=== PATIENT | male | born 2000 | race Two or more races ===

== ENCOUNTER 2020-04-15 01:48 | Inpatient (IN) | payer MEDICAID ==
[~2020-04-15] VITALS: Ht 175.3 cm; Wt 76.3 kg
[2020-04-15 02:39] LABS: BASOPHILS % (AUTO) 1.1 % (0.0-2.0); EOSINOPHILS % (AUTO) 0.3 % (1.0-6.0); HEMATOCRIT 46.1 % (41-53); HEMOGLOBIN 15.8 g/dL (13.5-17.5); LYMPHOCYTES # (AUTO) 1.7 K/uL (1.0-4.8); LYMPHOCYTES % (AUTO) 23.4 % (22.0-44.0); MEAN CORPUSCULAR HEMOGLOBIN 30.3 pg (26.0-34.0); MEAN CORPUSCULAR HGB CONC 34.3 G/dL (31.0-37.0); MEAN CORPUSCULAR VOLUME 88 fL (80-100); MONOCYTES # (AUTO) 0.4 K/uL (0.1-1.0); MONOCYTES % (AUTO) 5.9 % (2.0-9.0); NEUTROPHILS % (AUTO) 69.3 % (40.0-70.0); PLATELET COUNT (AUTO) 185 K/uL (150-450); RED BLOOD CELL COUNT(AUTO) 5.23 MIL/uL (4.50-5.90); RED CELL DISTRIBUTION WIDTH 12.9 % (11.5-14.5)
[2020-04-15 02:50] LABS: ANION GAP 8 mmol/L (8-16); CALCIUM, TOTAL 9.7 mg/dL (8.8-10.5); CARBON DIOXIDE 28 mmol/L (22-29); CHLORIDE 104 mmol/L (98-107); CREATININE 1.16 mg/dL (0.60-1.30); GLOMERULAR FILTR. RATE CALC > 60 mL/min (>60); GLUCOSE,RANDOM 105 mg/dL (70-110); POTASSIUM 4.4 mmol/L (3.5-5.1); SODIUM SERUM 140 mmol/L (136-145); UREA NITROGEN, BLOOD 10 mg/dL (7-18)
[2020-04-15 02:55] LABS: ALANINE AMINOTRANSFERASE 22 U/L (12-78); ALBUMIN 4.6 g/dL (3.4-5.0); ALKALINE PHOSPHATASE 58 U/L (46-116); ASPARTATE AMINOTRANSFERASE 16 U/L (15-37); BILIRUBIN,TOTAL 0.6 mg/dL (0.1-1.0)
[2020-04-15 04:34] LABS: COVID AG,FIA SOURCE NASOPHARYNGEAL
[2020-04-15 04:47] LABS: AMPHET/METH SCREEN,URINE NEGATIVE (NEGATIVE); BARBITURATE SCREEN, URINE NEGATIVE (NEGATIVE); BENZODIAZEPINES SCREEN,URINE NEGATIVE (NEGATIVE); CANNABINOID SCREEN,URINE POSITIVE (NEGATIVE); COCAINE SCREEN,URINE NEGATIVE (NEGATIVE); METHADONE SCREEN, URINE NEGATIVE (NEGATIVE); OPIATE SCREEN,URINE NEGATIVE (NEGATIVE)
[2020-04-15 04:49] LABS: PHENCYCLIDINE SCREEN,URINE NEGATIVE (NEGATIVE)
[2020-04-15] MEDS ORDERED: QUEtiapine FUMARATE 100 MG TABLET PO PRN (05:00)
[2020-04-15] MEDS ORDERED: ZOLPIDEM TARTRATE 10 MG TABLET PO PRN (05:00)
[2020-04-15] MEDS: LORazepam 2 MG TABLET PO PRN (05:20)
[2020-04-15 09:00] VITALS: BP 156/79
[2020-04-15] MEDS ORDERED: INFLUENZA VIRUS VACCINE QVS 2020-21 (6MO+)/PF 60 MCG/0.5 ML SYRINGE IM ONE (09:45)
[2020-04-15 16:00] VITALS: BP 139/94
[2020-04-15] MEDS ORDERED: LOPERAMIDE HCL 2 MG CAPSULE PO PRN (20:15)
[2020-04-15] MEDS ORDERED: OLANZapine 5 MG RAPDIS TABLET PO PRN (20:15)
[2020-04-15] MEDS ORDERED: HydrOXYzine PAMOATE 50 MG CAPSULE PO PRN (20:15)
[2020-04-15] MEDS ORDERED: GuaiFENesin/D-METHORPHAN [SUGAR-FREE] 200-20MG/10 ML SYRUP UDCUP PO PRN (20:15)
[2020-04-15] MEDS ORDERED: PROMETHAZINE HCL 25 MG TABLET PO PRN (20:15)
[2020-04-15] MEDS ORDERED: TUBERCULIN, PURIFIED PROTEIN DERIVATIVE 5 TU/0.1 ML SYRINGE ID ONE (20:15)
[2020-04-15] MEDS ORDERED: MAGNESIUM HYDROXIDE SUSPENSION 30 ML UDCUP PO PRN (20:15)
[2020-04-15] MEDS ORDERED: ACETAMINOPHEN 325 MG TABLET PO PRN (20:15)
[2020-04-15] MEDS ORDERED: MAG HYDROX/AL HYDROX/SIMETH ES 30 ML SUSPENSION UDCUP PO PRN (20:15)
[2020-04-15] MEDS ORDERED: OLANZapine 5 MG RAPDIS TABLET PO SCH (21:00)
[2020-04-16 07:28] LABS: HEMOGLOBIN A1C 5.1 % (3.8-5.6)
[2020-04-16 07:38] LABS: CHOL/HDL RATIO 4.3 (4.2-7.3); FREE T4 (FREE THYROXINE) 1.58 ng/dL (0.76-1.46); THYROID STIMULATING HORMONE 2.09 uIU/mL (0.36-3.74)
[2020-04-16] MEDS: MULTIVITAMINS WITH MINERALS, THERAPEUTIC TABLET PO SCH (08:55)
[2020-04-16] MEDS: FLUoxetine HCL 20 MG CAPSULE PO SCH (08:55)
[2020-04-16] MEDS: NALTREXONE HCL 50 MG TABLET PO SCH (08:55)
[2020-04-16] MEDS: THIAMINE 100 MG TABLET PO SCH ×2 (08:55→16:28)
[2020-04-16] MEDS: OMEGA-3/DHA/EPA/FISH OIL 1,000 MG CAPSULE PO SCH (08:55)
[2020-04-16] MEDS: FOLIC ACID 1 MG TABLET PO SCH (08:55)
[2020-04-16 09:28] VITALS: BP 146/76
[2020-04-16 16:12] VITALS: BP 140/89
[2020-04-16] MEDS: OLANZapine 10 MG RAPDIS TABLET PO SCH (20:44)
[2020-04-17 00:05] VITALS: BP 146/85
[2020-04-17] MEDS: NALTREXONE HCL 50 MG TABLET PO SCH (08:37)
[2020-04-17] MEDS: FOLIC ACID 1 MG TABLET PO SCH (08:37)
[2020-04-17] MEDS: OMEGA-3/DHA/EPA/FISH OIL 1,000 MG CAPSULE PO SCH (08:37)
[2020-04-17] MEDS: MULTIVITAMINS WITH MINERALS, THERAPEUTIC TABLET PO SCH (08:37)
[2020-04-17] MEDS: FLUoxetine HCL 20 MG CAPSULE PO SCH (08:37)
[2020-04-17] MEDS: THIAMINE 100 MG TABLET PO SCH ×2 (08:38→16:30)
[2020-04-17 09:34] VITALS: BP 163/93
[2020-04-17 16:23] VITALS: BP 138/96
[2020-04-17] MEDS ORDERED: NALT50TA PO (18:53)
[2020-04-17] MEDS ORDERED: OLAN10TA22 PO (18:53)
[2020-04-17] MEDS ORDERED: OMEG-135 PO (18:53)
[2020-04-17] MEDS ORDERED: FLUO-191 PO (18:53)
[2020-04-17] MEDS: OLANZapine 10 MG RAPDIS TABLET PO SCH (20:34)
[2020-04-17] MEDS: LORazepam 2 MG TABLET PO PRN (22:07)
[2020-04-18 08:30] VITALS: BP 153/81
[2020-04-18] MEDS: FOLIC ACID 1 MG TABLET PO SCH (09:39)
[2020-04-18] MEDS: NALTREXONE HCL 50 MG TABLET PO SCH (09:39)
[2020-04-18] MEDS: FLUoxetine HCL 20 MG CAPSULE PO SCH (09:39)
[2020-04-18] MEDS: OMEGA-3/DHA/EPA/FISH OIL 1,000 MG CAPSULE PO SCH (09:39)
[2020-04-18] MEDS: MULTIVITAMINS WITH MINERALS, THERAPEUTIC TABLET PO SCH (09:39)
[2020-04-18] MEDS: THIAMINE 100 MG TABLET PO SCH (09:40)
== END 2020-04-18 11:05 | disposition home or self-care (01) | DRG 750 ==
LOC: EMS 01:48 → 3EI 04:46
PROVIDERS: ADMIT Psychiatry & Neurology Psychiatry; ATTEND Psychiatry & Neurology Psychiatry
DX: F25.8 Other schizoaffective disorders (principal); Z79.899 Other long term (current) drug therapy; Z23 Encounter for immunization; Z03.818 Encounter for observation for suspected exposure to other biological agents ruled out
CPT/HCPCS: 83036; 84439; 84443; 86592; 87426; 90686; G0480

== ENCOUNTER 2023-04-12 02:21 | Emergency (ER) | payer MEDICAID, OTHER ==
[~2023-04-12] VITALS: Ht 175.3 cm; Wt 95.3 kg
[~2023-04-12 02:21] MED LIST: FLUO-177 PO; NALT50TA PO; OLAN10TA22 PO; OMEG-135 PO
[2023-04-12 02:28] VITALS: TEMP 98.6
[2023-04-12 02:56] LABS: COVID AG,FIA SOURCE NASAL SWAB
[2023-04-12 03:06] LABS: BASOPHILS % (AUTO) 0.9 % (0.0-2.0); EOSINOPHILS % (AUTO) 0.5 % (1.0-6.0); HEMOGLOBIN 16.2 g/dL (13.5-17.5); LYMPHOCYTES # (AUTO) 2.1 K/uL (1.0-4.8); MEAN CORPUSCULAR HEMOGLOBIN 31.1 pg (26.0-34.0); MEAN CORPUSCULAR HGB CONC 34.4 G/dL (31.0-37.0); MEAN CORPUSCULAR VOLUME 90 fL (80-100); MONOCYTES # (AUTO) 0.7 K/uL (0.1-1.0); MONOCYTES % (AUTO) 8.2 % (2.0-9.0); NEUTROPHILS # (AUTO) 5.9 K/uL (1.8-7.7); NEUTROPHILS % (AUTO) 66.4 % (40.0-70.0); PLATELET COUNT (AUTO) 219 K/uL (150-450); RED BLOOD CELL COUNT(AUTO) 5.21 MIL/uL (4.50-5.90); RED CELL DISTRIBUTION WIDTH 14.1 % (11.5-14.5); WHITE BLOOD COUNT (AUTO) 8.9 K/uL (4.5-11.0)
[2023-04-12 03:15] LABS: ANION GAP 14 mmol/L (8-16); CALCIUM, TOTAL 9.8 mg/dL (8.8-10.5); CARBON DIOXIDE 25 mmol/L (22-29); CHLORIDE 99 mmol/L (98-107); CREATININE 1.12 mg/dL (0.60-1.30); GLOMERULAR FILTR. RATE CALC > 60 mL/min (>60); GLUCOSE,RANDOM 87 mg/dL (70-110); POTASSIUM 3.9 mmol/L (3.5-5.1); SODIUM SERUM 138 mmol/L (136-145); UREA NITROGEN, BLOOD 7 mg/dL (7-18)
[2023-04-12 03:20] LABS: SARS-COV2 (COVID) ANTIGEN,FIA Negative (Negative)
[2023-04-12 03:21] LABS: ALANINE AMINOTRANSFERASE 26 U/L (12-78); ALBUMIN 4.3 g/dL (3.4-5.0); ALKALINE PHOSPHATASE 70 U/L (46-116); ASPARTATE AMINOTRANSFERASE 18 U/L (15-37); BILIRUBIN,TOTAL 0.7 mg/dL (0.1-1.0); TOTAL PROTEIN, SERUM 8.3 g/dL (6.4-8.2)
[2023-04-12 03:22] LABS: ALCOHOL, BLOOD (SERUM) < 3 mg/dL (0-10)
[2023-04-12] MEDS ORDERED: LORazepam 2 MG TABLET PO PRN ×2 (03:30→06:00)
[2023-04-12] MEDS ORDERED: OLANZapine 5 MG RAPDIS TABLET PO PRN ×2 (03:30→06:00)
[2023-04-12] MEDS ORDERED: ZOLPIDEM TARTRATE 10 MG TABLET PO PRN ×2 (03:30→06:00)
[2023-04-12 13:19] VITALS: BP 156/89; PULSE 99; RESP 16
== END 2023-04-12 13:27 ==
LOC: EMS 02:22
DX: F32.9 Major depressive disorder, single episode, unspecified (principal); Z79.899 Other long term (current) drug therapy; Z20.822 Contact with and (suspected) exposure to COVID-19
CPT/HCPCS: 99285; 87426; 80053; 85025; 36415; G0480